=== PATIENT | male | born 1955 | race Caucasian/White ===

== ENCOUNTER → 2017-09-19 | Outpatient (CLI) | payer OTHER ==
--- NOTE | 2017-09-20 16:31 | RAD ---
EXAM DESCRIPTION: Lumbar Spine Lateral Only CLINICAL HISTORY: LUMBAR RADICULITIS COMPARISON: None. IMPRESSION: Single lateral view of the lumbar spine shows vertebral body heights to be maintained. There is mild disc space narrowing at L2-3, moderate disc space narrowing at L3-4, and severe disc space narrowing from L4 through S1. Vacuum disc is seen at L3-4. Alignment of the lumbar spine is unremarkable. Probable posterior fusion from L4 through S1 is seen with bone graft stimulator wires in place posteriorly. Stimulator wires do not obviously extend into the neural foramen. Mild vascular calcifications are seen. Electronically signed by: Marcus Ratliff MD 09/20/2017 4:30 PM [facility]
== END ==
LOC: RAD 07:32
PROVIDERS: ATTEND Emergency Medicine
DX: M54.16 Radiculopathy, lumbar region (principal)

== ENCOUNTER → 2020-02-11 | Outpatient (CLI) | payer MEDICARE, OTHER | LOC: ECHO 08:56 | PROVIDERS: ATTEND Surgery | DX: I10 Essential (primary) hypertension (principal) ==

== ENCOUNTER → 2020-04-30 | Outpatient (CLI) | payer MEDICARE, OTHER ==
--- NOTE | 2020-05-03 20:38 | US ---
EXAM DESCRIPTION: Carotid Duplex: ULTRASOUND. CLINICAL HISTORY: 64 years Male DIZZINESS COMPARISON: None. TECHNIQUE: Transcutaneous scanning utilizing dailey-scale and Doppler modes to evaluate the bilateral carotid systems and vertebral arteries. Percentage of diameter of stenosis or no stenosis recorded will be based upon NASCET criteria. FINDINGS: Peak systolic/end diastolic velocities (CM-Sec) CCA Right 90/7 Left 89/26. ICA Right proximal 52/14, distal 42/15. Left proximal 53/16, Distal 59/21. Vertebral Right 70/17 Left 41/0. ECA (PS Only) Right 101 left 144. ICA/CCA peak systolic velocity ratio: Right 0.6 Left 0.7 ICA/CCA end diastolic velocity ratio: Right 1.9 Left 0.8 Vertebral arteries: antegrade flow. Comments: Atherosclerotic calcifications in the bilateral common carotid bifurcations. Less than 50% diameter and area stenosis in the mid right common carotid bulb. Less than 35% area and diameter stenosis in the mid left common carotid bulb. IMPRESSION: 1. Doppler evaluation of the bilateral carotid systems and vertebral arteries shows no hemodynamically significant stenoses (less than 70%). 2. Moderate amount of plaque in the carotid arteries bilaterally. Bilateral vertebral arteries showed antegrade-cephalad flow. Electronically signed by: Terry Frey MD 05/03/2020 8:36 PM CDT
== END ==
LOC: US 10:51
PROVIDERS: ATTEND Emergency Medicine
DX: I65.23 Occlusion and stenosis of bilateral carotid arteries (principal); R42 Dizziness and giddiness